=== PATIENT | female | born 1945 | race African-American/Black ===

== ENCOUNTER 2018-06-06 20:07 | Emergency (ER) | payer MEDICARE, BC ==
[~2018-06-06] VITALS: Ht 160 cm; Wt 66.0 kg
[2018-06-06] MEDS ORDERED: TORADOL PO (23:15)
[2018-06-06 23:30] VITALS: BP 155/68
== END 2018-06-06 23:30 | disposition home or self-care (01) ==
LOC: ED 20:07
DX: H57.11 Ocular pain, right eye (principal); R51 Headache

== ENCOUNTER 2018-06-25 18:45 | Emergency (ER) | payer MEDICARE, BC ==
[~2018-06-25] VITALS: Ht 160 cm; Wt 72.7 kg
[~2018-06-25 18:45] MED LIST: TORADOL PO
[2018-06-25 19:32] LABS: HEMATOCRIT 32.1 % (37.0-47.0); HEMOGLOBIN 9.8 g/dl (12.0-16.0); IMMATURE GRANULOCYTES 0.9 % (0.0-5.0); MEAN CELL VOLUME 90.4 fL CALC (80.0-100.0); MEAN CORPUSCULAR HGB 27.6 pG CALC (26.0-32.0); MEAN CORPUSCULAR HGB CONC 30.5 g/L CALC (32.0-36.0); NEUT# 7.16 thou/uL (2.00-7.15); RED BLOOD COUNT 3.55 mill/uL (4.20-5.60); RED CELL DISTRI WIDTH 17.6 % (11.5-15.5)
[2018-06-25 20:06] LABS: ALBUMIN 3.2 g/dL (3.2-5.0); ALKALINE PHOSPHATASE 142 u/l (38-126); AMYLASE 156 u/l (30-110); ANION GAP 10 (6-22 (CALC)); BILIRUBIN, TOTAL 0.3 mg/dL (0.0-1.4); BUN 29 mg/dL (8-23); BUN/CREATININE RATIO 28 (12-20 (CALC)); CHLORIDE 111 mmol/l (95-108); GFR 55 ML/MIN (>=60 (CALC)); GFR FOR AFR.AMER. > 60 ML/MIN (>=60 (CALC)); LIPASE 594 u/l (23-300); POTASSIUM 3.9 mmol/l (3.5-5.1); SGOT/AST 15 u/l (9-36); SODIUM 137 mmol/l (137-146); TOTAL PROTEIN 5.7 g/dL (6.3-8.2)
[2018-06-25 20:09] LABS: CARBON DIOXIDE 20 mmol/l (22-30)
[2018-06-25 21:41] LABS: URINE BILIRUBIN - DIPSTICK NEGATIVE (NEGATIVE); URINE BLOOD DIPSTICK NEGATIVE (NEGATIVE); URINE COLOR YELLOW; URINE GLUCOSE - DIPSTICK NEGATIVE (NEGATIVE); URINE KETONE NEGATIVE (NEGATIVE); URINE LEUK ESTERASE TRACE (NEGATIVE); URINE NITRITE - DIPSTICK NEGATIVE (Negative); URINE PH 5.5 (4.5-8.0); URINE PROTEIN - DIPSTICK NEGATIVE (NEG-TRACE); URINE SPECIFIC GRAVITY 1.025; URINE UROBILINOGEN - DIPSTICK 0.2 E.U./dL (0.2)
[2018-06-25] MEDS ORDERED: LORTAB 5/3255 MG PO (23:52)
[2018-06-26 00:10] VITALS: BP 129/57
== END 2018-06-26 00:10 | disposition home or self-care (01) ==
LOC: ED 18:45
DX: R07.89 Other chest pain (principal); R10.32 Left lower quadrant pain; R74.8 Abnormal levels of other serum enzymes; I10 Essential (primary) hypertension; I25.10 Atherosclerotic heart disease of native coronary artery without angina pectoris; Z95.1 Presence of aortocoronary bypass graft